=== PATIENT | male | born 1985 | race Two or more races ===

== ENCOUNTER 2018-08-04 14:53 | Emergency (ER) | payer OTHER ==
--- NOTE | 2018-08-04 18:07 | ED ---
Lower Extremity - HPI Summary HPI Summary: Patient is a 33 y/o M presenting to ED with complaints of BLE pain. He states that he had a kidney transplant six months ago in [place]. Four months ago, patient began to have a "twinging" pain at upper legs. He notes that pain is present bilaterally but more so at his right leg. Patient followed up with his doctors in [place], he was told that pain is likely related to his vitamin D and magnesium deficiency, was given supplements. However, patient continued to experience Sx. He recently moved to [facility], is followed by kidney center at [facility]. Patient states that he mentioned these Sx to his doctor at [place], patient was similarly told that Sx could be related to low magnesium. He states that he experienced a severe exacerbation of Sx four days ago. Patient notes that pain is more severe and is present at entirety of legs and hips. Patient reports no back discomfort. No recent injury or fall is reported. On triage, pain is rated 6/10, movement and walking is noted to aggravate Sx, nothing is reported to alleviate Sx. Home medications and allergies are reviewed. - History of Current Complaint Chief Complaint: EDExtremityLower Stated Complaint: "PAIN IN UPPER RIGHT LEG" PER PT Time Seen by Provider: 08/04/18 17:38 Hx Obtained From: Patient Mechanism Of Injury: Other - no MERNA reported Onset of Pain: Days - 4 months ago onset with exacerbation 4 days ago, Prior to Arrival Onset/Duration: Worse Since - 4 days ago Severity Initially: Mild Severity Currently: Moderate - 6/10 Pain Intensity: 6 Pain Scale Used: 0-10 Numeric - 6/10 Timing: Constant, Lasting Days - exacerbation onset four days ago, Lasting Weeks - initial onset 4 months ago Location: Is Discrete @ - BLE Character Of Pain: Sharp - "twinging" Associated Signs And Symptoms: Positive: Negative Aggravating Factor(s): Ambulation, Movement Alleviating Factor(s): Nothing - Allergies/Home Medications Allergies/Adverse Reactions: Allergies Allergy/AdvReac Type Severity Reaction Status Date / Time No Known Allergies Allergy Verified 08/04/18 15:01 PMH/Surg Hx/FS Hx/Imm Hx Sensory History: Denies: Hx Legally Blind, Hx Deafness Opthamlomology History: Denies: Hx Legally Blind EENT History: Denies: Hx Deafness - Surgical History Surgery Procedure, Year, and Place: kidney transplant in [facility] Infectious Disease History: No Infectious Disease History: Denies: Traveled Outside the [place] in Last 30 Days - Family History Known Family History: Positive: Hypertension, Diabetes, Other - stroke - Social History Alcohol Use: Occasionally Substance Use Type: Reports: None Smoking Status (MU): Former Smoker Review of Systems Negative: Fever - ON VITALS, TEMP IS 97.1 F Musculoskeletal: Other - POSITIVE - BLE PAIN; NEGATIVE - BACK PAIN, RECENT INJURY, FALL All Other Systems Reviewed And Are Negative: Yes Physical Exam - Summary Physical Exam Summary: Constitutional: Well-developed, Well-nourished, Alert. (-) Distressed Skin: Warm, Dry HENT: Normocephalic; Atraumatic Eyes: Conjunctiva normal Neck: Musculoskeletal ROM normal neck. (-) JVD, (-) Stridor, (-) Tracheal deviation Cardio: Rhythm regular, rate normal, Heart sounds normal; Intact distal pulses; The pedal pulses are 2+ and symmetric. Radial pulses are 2+ and symmetric. (-) Murmur Pulmonary/Chest wall: Effort normal. (-) Respiratory distress, (-) Wheezes, (-) Rales Abd: Soft, (-) tenderness, (-) Distension, (-) Guarding, (-) Rebound Musculoskeletal: (-) Edema (+) tenderness with palpation of right thigh and lateral hip, pain with ROM of leg, mild rigidity at right knee Lymph: (-) Cervical adenopathy Neuro: Alert, Oriented x3 Psych: Mood and affect Normal Triage Information Reviewed: Yes Vital Signs On Initial Exam: Initial Vitals Temp Pulse Resp BP Pulse Ox 97.1 F 88 18 106/85 98 08/04/18 14:59 08/04/18 14:59 08/04/18 14:59 08/04/18 14:59 08/04/18 14:59 Vital Signs Reviewed: Yes Diagnostics - Vital Signs Vital Signs Temp Pulse Resp BP Pulse Ox 08/04/18 14:59 97.1 F 88 18 106/85 98 - Laboratory Result Diagrams: 08/04/18 18:22 08/04/18 18:22 Lab Statement: Any lab studies that have been ordered have been reviewed, and results considered in the medical decision making process. - Radiology right hip/pelvis x-ray Radiology Interpretation Completed By: ED Physician Summary of Radiographic Findings: No acute fracture, pending official report. Lower Extremity Course/Dx - Course Course Of Treatment: Patient is a 33 y/o M presenting to ED with complaints of BLE pain. He states that he had a kidney transplant six months ago in [place]. Four months ago, patient began to have a "twinging" pain at upper legs. He notes that pain is present bilaterally but more so at his right leg. Patient followed up with his doctors in [place], he was told that pain is likely related to his vitamin D and magnesium deficiency, was given supplements. However, patient continued to experience Sx. He recently moved to [facility], is followed by kidney center at [facility]. Patient states that he mentioned these Sx to his doctor at [place], patient was similarly told that Sx could be related to low magnesium. He states that he experienced a severe exacerbation of Sx four days ago. Patient notes that pain is more severe and is present at entirety of legs and hips. Patient reports no back discomfort. No recent injury or fall is reported. On physical exam, tenderness with palpation of right thigh and lateral hip, pain with ROM of leg, mild rigidity at right knee. Right hip/pelvis x-ray, no acute fracture, pending official report. Labs showed Hgb 13.7, Hct 41, BUN 26, creatinine 1.81, magnesium 1.5. During ED course, patient receive Tylenol 650 mg PO ED ONCE, Magnesium 2 gm in 50 mls @ 50 mls/hr IVPB ONCE. Patient will be discharged to home and follow up with PCP and ortho. Patient is agreeable with this. - Diagnoses Provider Diagnoses: Hypomagnesemia, Leg pain Discharge - Sign-Out/Discharge Documenting (check all that apply): Patient Departure - discharge Patient Received Moderate/Deep Sedation with Procedure: No - Discharge Plan Condition: Good Disposition: HOME Patient Education Materials: Hypomagnesemia (ED), Leg Pain (ED) Print Language: FRENCH Referrals: [facility] [Outside] Clayton Galeas MD [Medical Doctor] - Additional Instructions: Return to ED for any new or worsening symptoms. Follow up with PCP and ortho within two days. - Billing Disposition and Condition Condition: GOOD Disposition: Home - Attestation Statements Document Initiated by Scribe: Yes Documenting Scribe: ROBINSON GALVEZ Provider For Whom Patriciaibe is Documenting (Include Credential): FE VILLEDA MD Scribe Attestation: I, ROBINSON GALVEZ, scribed for FE ONTIVEROS MD on 08/04/18 at 2241. Scribe Documentation Reviewed: Yes Provider Attestation: The documentation as recorded by the scribe, ROBINSON GALVEZ accurately reflects the service I personally performed and the decisions made by me, FE ONTIVEROS MD Status of Scribe Document: Viewed
[2018-08-04 18:37] LABS: ABS Basophils 0 10^3/ul (0-0.2); ABS Eosinophils 0 10^3/ul (0-0.6); ABS Lymphocytes 1.5 10^3/ul (1.0-4.8); ABS Monocytes 0.5 10^3/ul (0-0.8); ABS Neutrophils 4.8 10^3/ul (1.5-7.7); ABS Nucleated RBC 0 10^3/ul; Eosinophil % 0.1 %; Hematocrit 41 % (42-52); Hemoglobin 13.7 g/dl (14.0-18.0); Mean Corpuscular HGB Conc 33 g/dl (31-36); Mean Corpuscular Hemoglobin 27 pg (27-31); Mean Corpuscular Volume 82 fL (80-94); Mean Platelet Volume 8.3 fL (7.4-10.4); Nucleated Red Blood Cells % 0; Platelet Count 211 10^3/ul (150-450); Red Blood Count 5.05 10^6/ul (4.00-5.40); Red Cell Distribution Width 15 % (10.5-15); White Blood Count 6.7 10^3/ul (3.5-10.8)
[2018-08-04 18:50] LABS: Albumin 4.4 g/dL (3.2-5.2); Albumin/Globulin Ratio 1.9 (1-3); BUN/Creatinine Ratio 14.4 (8-20); Calcium 9.7 mg/dL (8.6-10.3); EGFR African American 53.2 (>60); EGFR Non-African American 43.9 (>60); Globulin 2.3 g/dL (2-4); Total Bilirubin 0.6 mg/dL (0.2-1.0); Total Protein 6.7 g/dL (6.4-8.9)
[2018-08-04] MEDS ORDERED: Acetaminophen TAB* 325 MG PO ONE (20:02)
[2018-08-04 20:49] LABS: Magnesium 1.5 mg/dL (1.9-2.7)
[2018-08-04] MEDS ORDERED: Magnesium Sulfate 2 GM IV* 2 GM/50 ML BAG IVPB ONE (21:02)
[2018-08-04 22:41] VITALS: BP 108/70
--- NOTE | 2018-08-06 05:51 | PN ---
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
== END 2018-08-04 22:40 | disposition home or self-care (01) ==
LOC: ED 14:53
DX: E83.42 Hypomagnesemia (principal); M79.604 Pain in right leg; Z87.891 Personal history of nicotine dependence; Z94.0 Kidney transplant status
CPT/HCPCS: 36415; 80053; 83735; 85025; 96374; 99282; A9270-GY; J3475

== ENCOUNTER 2019-03-28 01:15 | Emergency (ER) | payer OTHER ==
--- NOTE | 2019-03-28 02:52 | ED ---
HPI Chest Pain - HPI Summary HPI Summary: This patient is a 34 year old male presenting to [facility] with a chief complaint of chest pain since 4 hours ago. He describes the pain as a heaviness in his chest. He states movement will make the pain worse. He rates his pain 4/10 in severity. He denies SOB, skin diaphoresis, nausea. He reports a Hx of AVN. - History of Current Complaint Chief Complaint: EDChestPainROMI Time Seen by Provider: 03/28/19 02:45 Hx Obtained From: Patient Onset/Duration: Started Hours Ago Pain Intensity: 4 Pain Scale Used: 0-10 Numeric - Allergy/Home Medications Allergies/Adverse Reactions: Allergies Allergy/AdvReac Type Severity Reaction Status Date / Time No Known Allergies Allergy Verified 03/28/19 01:26 PMH/Surg Hx/FS Hx/Imm Hx Cardiovascular History: Reports: Hx Hypertension - MEDICATED Denies: Hx Pacemaker/ICD Sensory History: Denies: Hx Legally Blind, Hx Deafness, Hx Hearing Aid Opthamlomology History: Denies: Hx Legally Blind Psychiatric History: Denies: Hx Panic Disorder - Surgical History Surgery Procedure, Year, and Place: 11/2017 kidney transplant in [facility]. APPENDECTOMY. DIALYSIS [facility] - ( NEVER USED) [facility] Infectious Disease History: No Infectious Disease History: Denies: Traveled Outside the [place] in Last 30 Days - Family History Known Family History: Positive: Hypertension, Diabetes, Other - stroke - Social History Alcohol Use: Occasionally Substance Use Type: Reports: None Smoking Status (MU): Former Smoker Review of Systems Negative: Skin Diaphoresis Positive: Chest Pain Negative: Shortness Of Breath Negative: Nausea All Other Systems Reviewed And Are Negative: Yes Physical Exam - Summary Physical Exam Summary: Appearance: Well-appearing, Well-nourished, lying in bed comfortably Skin: Warm, dry, no obvious rash Eyes: sclera anicteric, no conjunctival pallor ENT: mucous membranes moist, pharynx appears normal Neck: Supple, nontender Respiratory: Clear to auscultation, no signs of respiratory distress Cardiovascular: Normal S1, S2. No murmurs. Normal distal pulses in tibial and radial bilaterally. Abdomen: Soft, nontender, normal active bowel sounds present Musculoskeletal: Normal, Strength/ROM Intact Neurological: A&Ox3, awake and alert, mentation is normal, speech is fluent and appropriate Psychiatric: affect is normal, does not appear anxious or depressed Triage Information Reviewed: Yes Vital Signs On Initial Exam: Initial Vitals Temp Pulse Resp BP Pulse Ox 97.8 F 74 16 132/85 100 03/28/19 01:23 03/28/19 01:23 03/28/19 01:23 03/28/19 01:23 03/28/19 01:23 Vital Signs Reviewed: Yes Procedures - Sedation Patient Received Moderate/Deep Sedation with Procedure: No Diagnostics - Vital Signs Vital Signs Temp Pulse Resp BP Pulse Ox 03/28/19 01:23 97.8 F 74 16 132/85 100 - Laboratory Result Diagrams: 03/28/19 02:51 03/28/19 02:51 Lab Statement: Any lab studies that have been ordered have been reviewed, and results considered in the medical decision making process. - Radiology CXR' Radiology Interpretation Completed By: ED Physician Summary of Radiographic Findings: No acute process. Pending official radiologist report. - EKG 0116 Cardiac Rate: NL - 67 BPM EKG Rhythm: Sinus Rhythm Summary of EKG Findings: NSR at 67 BPM, P waves, QRS complex, and T waves are within normal limits, T waves and intervals are normal, no ischemic changes. This is a normal EKG. Chest Pain Course/Dx - Course Course Of Treatment: This patient is a 34 year old male presenting to [facility] with a chief complaint of chest pain since 4 hours ago. Physical exam, EKG, and CXR were unremarkable. A plan for discharge was discussed with the patient and he was agreeable with this plan. - Diagnoses Provider Diagnoses: Chest wall pain Discharge ED - Sign-Out/Discharge Documenting (check all that apply): Patient Departure - Discharge - Discharge Plan Condition: Good Disposition: HOME Patient Education Materials: Chest Wall Pain (ED) Referrals: [facility] - Fabricio [Primary Care Provider] - 1 Week (if not improving) - Billing Disposition and Condition Condition: GOOD Disposition: Home - Attestation Statements Document Initiated by Patriciaibe: Yes Documenting Scribe: Suhail Enamorado Provider For Whom Jose is Documenting (Include Credential): Hakan Hart MD Scribe Attestation: Suhail Ramos scribed for Hakan Hart MD on 04/01/19 at 1808. Scribe Documentation Reviewed: Yes Provider Attestation: The documentation as recorded by the patriciaibkain Suhail Enamorado accurately reflects the service I personally performed and the decisions made by me, Hakan Hart MD Status of Jose Document: Viewed
[2019-03-28 03:06] LABS: ABS Lymphocytes 2.3 10^3/ul (1.0-4.8); ABS Monocytes 0.4 10^3/ul (0-0.8); ABS Neutrophils 3.4 10^3/ul (1.5-7.7); Eosinophil % 0.7 %; Hematocrit 39 % (42-52); Hemoglobin 13.1 g/dL (14.0-18.0); Lymphocyte % 36.9 %; Mean Corpuscular HGB Conc 33 g/dL (31-36); Mean Corpuscular Hemoglobin 28 pg (27-31); Mean Corpuscular Volume 83 fL (80-94); Mean Platelet Volume 8.3 fL (7.4-10.4); Nucleated Red Blood Cells % 0.3; Platelet Count 190 10^3/uL (150-450); Red Blood Count 4.75 10^6 /uL (4.18-5.48); Red Cell Distribution Width 14 % (10-15); White Blood Count 6.1 10^3/uL (3.5-10.8)
[2019-03-28 03:11] LABS: INR 1.02 (0.82-1.09)
[2019-03-28 03:18] LABS: Albumin 4.4 g/dL (3.2-5.2); Albumin/Globulin Ratio 2.2 (1-3); BUN/Creatinine Ratio 14.3 (8-20); Calcium 9.3 mg/dL (8.6-10.3); EGFR African American 48.2 (>60); EGFR Non-African American 39.8 (>60); Potassium 4.6 mmol/L (3.5-5.0); Total Bilirubin 0.7 mg/dL (0.2-1.0); Total Protein 6.4 g/dL (6.4-8.9)
[2019-03-28 04:36] VITALS: BP 128/76
== END 2019-03-28 04:24 | disposition home or self-care (01) ==
LOC: ED 01:15
DX: R07.89 Other chest pain (principal); I10 Essential (primary) hypertension; Z79.899 Other long term (current) drug therapy; Z87.891 Personal history of nicotine dependence
CPT/HCPCS: 36415; 71046; 80053; 84484; 85025; 85610; 93005; 99283

== ENCOUNTER 2020-06-17 07:33 | Inpatient (IN) ==
[~2020-06-17 07:33] MED LIST: Buffered Lidocaine 1% SYRIN 1 ml INTRADERM ONE; Lactated Ringers 1000 ml BAG 1,000 ML IV SCH; ceFAZolin 2 GM PREMIX 2 GM/50 ML BAG ONE
[2020-06-17] MEDS ORDERED: fentaNYL 100 mcg/2 ml 50 MCG/ML VIAL ONE ×2 (09:25→09:51)
[2020-06-17] MEDS ORDERED: Midazolam 2 mg/2 ml VIAL 1 mg/ml 2 ml VIAL (2 mg) ONE ×3 (09:26→12:08)
[2020-06-17] MEDS ORDERED: Rocuronium 50 mg VIAL 10 mg/ml 5 ml VIAL (50 mg) ONE (10:03)
[2020-06-17] MEDS ORDERED: Ondansetron 4 mg VIAL 2 MG/ML 2 ml VIAL ONE (10:42)
[2020-06-17] MEDS ORDERED: Lidocaine 2% PF 5 ML VIAL ONE (10:42)
[2020-06-17] MEDS ORDERED: Propofol 10 MG/ML 20 ML BTL ONE (10:42)
[2020-06-17] MEDS ORDERED: Metoclopramide 5 MG/ML VIAL (10 mg) ONE (10:42)
[2020-06-17] MEDS ORDERED: Dexamethasone IV 4 MG/ML VIAL 1 ml VIAL ONE (10:42)
[2020-06-17] MEDS ORDERED: Calcium CHLORIDE 10% SYRINGE 1 GM/10 ML ONE (10:43)
[2020-06-17] MEDS ORDERED: Lactulose 30 ml UDC PO PRN (10:44)
[2020-06-17] MEDS ORDERED: diPHENhydraMINE IV 50 MG/ML 1 ml VIAL (BENADRYL) IV PRN (10:44)
[2020-06-17] MEDS ORDERED: Ondansetron ODT 4 mg TAB 4 MG TAB PO PRN (10:44)
[2020-06-17] MEDS ORDERED: Magnesium Hydroxide LIQ 30 ML UDC PO PRN (10:44)
[2020-06-17] MEDS ORDERED: Ondansetron 4 mg VIAL 2 MG/ML 2 ml VIAL IV PRN ×2 (10:44→11:15)
[2020-06-17] MEDS ORDERED: diPHENhydraMINE 25 mg TAB PO PRN (10:44)
[2020-06-17] MEDS ORDERED: ceFAZolin 1 GM ADVAN 1 GM in NS 0.9% 50 ML 50 ML IVPB SCH (11:00)
[2020-06-17 11:08] LABS: Albumin 3.9 g/dL (3.2-5.2); Calcium 8.7 mg/dL (8.6-10.3); Potassium 4.9 mmol/L (3.5-5.0); Total Bilirubin 0.6 mg/dL (0.2-1.0)
[2020-06-17 11:14] LABS: Albumin/Globulin Ratio 2.3 (1-3); EGFR Non-African American 37.2 (>60); Globulin 1.7 g/dL (2-4); Total Protein 5.6 g/dL (6.4-8.9)
[2020-06-17] MEDS ORDERED: fentaNYL 100 mcg/2 ml 50 MCG/ML VIAL IV PRN (11:15)
[2020-06-17] MEDS ORDERED: Naloxone 0.4 mg VIAL 0.4 mg/ml 1 ml VIAL IV PRN (11:15)
[2020-06-17] MEDS: Lactated Ringers 1000 ml BAG 1,000 ML IV SCH ×2 (13:35→22:33)
[2020-06-17] MEDS ORDERED: Prochlorperazine 5 mg/ml 2 ml VIAL (10 mg) IV PRN (14:46)
[2020-06-17] MEDS: Morphine 2 MG/ML SYRINGE IV PRN (15:15)
[2020-06-17] MEDS: Morphine ER 15 mg TAB ** extended release PO SCH (16:21)
[2020-06-17] MEDS: ceFAZolin 1 GM ADVAN 1 GM in NS 0.9% 50 ML 50 ML IVPB SCH (18:22)
[2020-06-17] MEDS: Magnesium Hydroxide LIQ 30 ML UDC PO SCH (22:24)
[2020-06-17] MEDS: PTO:Tacrolimus 0.5 mg CAP PO SCH (22:25)
[2020-06-17] MEDS: MYCOPHENOLATE 180 MG PO SCH (22:25)
[2020-06-18] MEDS: Morphine 2 MG/ML SYRINGE IV PRN (00:34)
[2020-06-18] MEDS: ceFAZolin 1 GM ADVAN 1 GM in NS 0.9% 50 ML 50 ML IVPB SCH ×2 (03:05→10:37)
[2020-06-18 05:29] LABS: Hematocrit 31 % (42-52); Hemoglobin 10.5 g/dL (14.0-18.0); Mean Platelet Volume 8.6 fL (7.4-10.4); Platelet Count 177 10^3/uL (150-450)
[2020-06-18 05:46] LABS: BUN/Creatinine Ratio 12.3 (8-20); Calcium 9.2 mg/dL (8.6-10.3); EGFR African American 40.2 (>60); EGFR Non-African American 33.2 (>60)
[2020-06-18] MEDS: Morphine ER 15 mg TAB ** extended release PO SCH (06:48)
[2020-06-18] MEDS: Vitamin THERAPEUTIC TAB PO SCH (08:21)
[2020-06-18] MEDS: Magnesium Hydroxide LIQ 30 ML UDC PO SCH ×2 (08:21→22:07)
[2020-06-18] MEDS: MYCOPHENOLATE 180 MG PO SCH ×2 (10:36→22:09)
[2020-06-18] MEDS: PTO:Tacrolimus 0.5 mg CAP PO SCH ×2 (10:36→23:41)
[2020-06-18] MEDS ORDERED: NS 0.9% 500 ml BAG 500 ML IV ONE (15:55)
[2020-06-18] MEDS ORDERED: NS 0.9% 500 ml BAG 1,000 ML IV ONE (16:02)
[2020-06-18] MEDS ORDERED: Morphine 2 MG/ML SYRINGE IV PRN (16:05)
[2020-06-18 16:36] LABS: ABS Lymphocytes 1.6 10^3/ul (1.0-4.8); ABS Neutrophils 5.3 10^3/ul (1.5-7.7); Eosinophil % 0.1 %; Hematocrit 27 % (42-52); Hemoglobin 9.3 g/dL (14.0-18.0); Lymphocyte % 20.3 %; Mean Corpuscular HGB Conc 34 g/dL (31-36); Mean Corpuscular Hemoglobin 28 pg (27-31); Mean Corpuscular Volume 83 fL (80-94); Mean Platelet Volume 7.9 fL (7.4-10.4); Platelet Count 145 10^3/uL (150-450); Red Blood Count 3.28 10^6 /uL (4.18-5.48); Red Cell Distribution Width 14 % (10-15)
[2020-06-18] MEDS ORDERED: NS 0.9% 1000 ml BAG 1,000 ML IV ONE (16:51)
[2020-06-18 17:00] LABS: Albumin 3.5 g/dL (3.2-5.2); Calcium 8.6 mg/dL (8.6-10.3); Total Bilirubin 1.4 mg/dL (0.2-1.0)
[2020-06-18 17:06] LABS: Albumin/Globulin Ratio 2.2 (1-3); BUN/Creatinine Ratio 11.8 (8-20); EGFR African American 31.7 (>60); EGFR Non-African American 26.2 (>60); Globulin 1.6 g/dL (2-4); Total Protein 5.1 g/dL (6.4-8.9)
[2020-06-18] MEDS: Lactated Ringers 1000 ml BAG 1,000 ML IV SCH (18:58)
[2020-06-18 22:27] LABS: Urine Appearance Clear; Urine Bilirubin Negative (Negative); Urine Blood 3+ (Negative); Urine Color Yellow; Urine Glucose Negative (Negative); Urine Ketones Negative (Negative); Urine Nitrite Negative (Negative); Urine Protein Negative (Negative); Urine Specific Gravity 1.008 (1.010-1.030); Urine Urobilinogen Negative (Negative)
[2020-06-18 22:32] LABS: Urine Bacteria Absent (Absent); Urine Red Blood Cell Trace(0-2/hpf) (Absent); Urine White Blood Cell Trace(0-5/hpf) (Absent)
[2020-06-19] MEDS: Lactated Ringers 1000 ml BAG 1,000 ML IV SCH ×3 (02:51→14:45)
[2020-06-19 05:12] LABS: ABS Lymphocytes 1.4 10^3/ul (1.0-4.8); ABS Neutrophils 6.4 10^3/ul (1.5-7.7); Eosinophil % 0.1 %; Hematocrit 26 % (42-52); Lymphocyte % 15.7 %; Mean Corpuscular HGB Conc 35 g/dL (31-36); Mean Corpuscular Hemoglobin 29 pg (27-31); Mean Corpuscular Volume 83 fL (80-94); Mean Platelet Volume 7.9 fL (7.4-10.4); Platelet Count 132 10^3/uL (150-450); Red Blood Count 3.12 10^6 /uL (4.18-5.48); Red Cell Distribution Width 14 % (10-15); White Blood Count 8.8 10^3/uL (3.5-10.8)
[2020-06-19 05:30] LABS: BUN/Creatinine Ratio 12.8 (8-20); Calcium 8.9 mg/dL (8.6-10.3); EGFR African American 42.1 (>60); EGFR Non-African American 34.8 (>60); Potassium 4.6 mmol/L (3.5-5.0)
[2020-06-19] MEDS: Vitamin THERAPEUTIC TAB PO SCH (08:31)
[2020-06-19] MEDS ORDERED: Lactated Ringers 1000 ml BAG 1,000 ML IV SCH (08:31)
[2020-06-19] MEDS: MYCOPHENOLATE 180 MG PO SCH ×2 (08:35→20:15)
[2020-06-19] MEDS: PTO:Tacrolimus 0.5 mg CAP PO SCH ×2 (10:27→22:09)
[2020-06-19] MEDS: Magnesium Hydroxide LIQ 30 ML UDC PO SCH ×2 (10:38→20:15)
[2020-06-19] MEDS: TACROLIMUS 0.5 MG PO SCH (22:14)
[2020-06-20 06:04] LABS: ABS Eosinophils 0.1 10^3/ul (0-0.6); ABS Lymphocytes 1.9 10^3/ul (1.0-4.8); ABS Monocytes 0.7 10^3/ul (0-0.8); ABS Neutrophils 5.1 10^3/ul (1.5-7.7); Hematocrit 25 % (42-52); Hemoglobin 8.5 g/dL (14.0-18.0); Lymphocyte % 24.7 %; Mean Corpuscular HGB Conc 34 g/dL (31-36); Mean Corpuscular Hemoglobin 28 pg (27-31); Mean Corpuscular Volume 84 fL (80-94); Mean Platelet Volume 8.3 fL (7.4-10.4); Platelet Count 140 10^3/uL (150-450); Red Blood Count 2.99 10^6 /uL (4.18-5.48); Red Cell Distribution Width 14 % (10-15); White Blood Count 7.8 10^3/uL (3.5-10.8)
[2020-06-20 06:17] LABS: BUN/Creatinine Ratio 13.5 (8-20); Calcium 9.5 mg/dL (8.6-10.3); EGFR African American 53.5 (>60); EGFR Non-African American 44.2 (>60); Potassium 4.2 mmol/L (3.5-5.0)
[2020-06-20 08:23] LABS: Total Bilirubin 1.2 mg/dL (0.2-1.0)
[2020-06-20] MEDS: Vitamin THERAPEUTIC TAB PO SCH (08:37)
[2020-06-20] MEDS: MYCOPHENOLATE 180 MG PO SCH (08:38)
[2020-06-20] MEDS: Magnesium Hydroxide LIQ 30 ML UDC PO SCH (08:38)
[2020-06-20] MEDS: TACROLIMUS 0.5 MG PO SCH (10:18)
[2020-06-20 11:47] VITALS: BP 103/64
[2020-06-21 14:22] LABS: Tacrolimus 9.5 ng/mL
[2020-06-21 18:04] LABS: BK Virus PCR Quant Plasma None Detected
[2020-06-22 00:14] LABS: CMV DNA DETECT/QT, P <35 IU/mL (Undetected)
== END 2020-06-20 14:45 | disposition home health service (06) ==
LOC: PMRU 07:33 → OR 07:33 → SSU 13:55
PROVIDERS: ADMIT Orthopaedic Surgery Adult Reconstructive Orthopaedic Surgery; ATTEND Orthopaedic Surgery Adult Reconstructive Orthopaedic Surgery